=== PATIENT | female | born 1980 | race American Indian/Alaskan Native ===

== ENCOUNTER 2017-09-07 12:27 | Outpatient (CLI) | payer OTHER | END 2017-09-07 13:14 | disposition home or self-care (01) | LOC: NST 12:27 | DX: O16.3 Unspecified maternal hypertension, third trimester (principal); Z34.83 Encounter for supervision of other normal pregnancy, third trimester ==

== ENCOUNTER 2017-09-29 11:21 | Outpatient (CLI) | payer OTHER | END 2017-09-29 12:27 | disposition home or self-care (01) | LOC: NST 11:21 | DX: Z34.83 Encounter for supervision of other normal pregnancy, third trimester (principal); Z3A.37 37 weeks gestation of pregnancy ==

== ENCOUNTER 2017-10-04 10:37 | Outpatient (CLI) | payer OTHER ==
[2017-10-04] MEDS ORDERED: LABETALOL HCL100 MG PO (14:49)
== END 2017-10-04 12:27 | disposition home or self-care (01) ==
LOC: NST 10:37
DX: Z34.83 Encounter for supervision of other normal pregnancy, third trimester (principal)

== ENCOUNTER 2017-10-04 13:00 | Inpatient (IN) | payer OTHER ==
[~2017-10-04] VITALS: Ht 152.4 cm; Wt 2.7 kg
[2017-10-04] MEDS ORDERED: LABETALOL HCL100 MG PO (14:49)
[2017-10-11] MEDS ORDERED: PRENATAL TABLE1 EAC1 PO (07:52)
== END 2017-10-14 11:46 | DRG 766 ==
LOC: LDR 10-11 08:00 → O/R 10-11 08:00 → SURG-SUITE 10-11 11:50 → LDR 10-11 13:00 → SURG-SUITE 10-14 11:46
PROVIDERS: Obstetrics & Gynecology Maternal & Fetal Medicine
PROC: 0UL70ZZ Occlusion of Bilateral Fallopian Tubes, Open Approach (ICD-10-PCS; 2017-10-11)
PROC: 4A1HXCZ Monitoring of Products of Conception, Cardiac Rate, External Approach (ICD-10-PCS; 2017-10-11)
PROC: 10D00Z1 Extraction of Products of Conception, Low, Open Approach (ICD-10-PCS; principal; 2017-10-11 08:00)
DX: O82 Encounter for cesarean delivery without indication (principal); O34.211 Maternal care for low transverse scar from previous cesarean delivery; Z3A.39 39 weeks gestation of pregnancy; Z37.0 Single live birth; Z30.2 Encounter for sterilization